=== PATIENT | female | born 1945 | race Caucasian/White ===

== ENCOUNTER 2020-07-08 20:50 | Inpatient (IN) | payer MEDICARE ==
--- NOTE | 2020-07-08 21:25 | ER Document Report ---
ED General - General Chief Complaint: Altered Mental Status Stated Complaint: ALTERED MENTAL STATUS Time Seen by Provider: 07/08/20 21:03 Notes: Patient is a 75-year-old female that comes emergency department for chief complaint of decreased responsiveness and confusion. Patient comes by EMS, patient is on a morphine pump and EMS gave 2 mg of Narcan, after this patient became aroused and responded to them although she continued to be confused. EMS also reports that on arrival family had patient on a nonrebreather mask at only 3 L. Patient did not have any abnormal behavior or symptoms during the day that are reported, does not have a fever, no other pertinent history reported for her current symptoms. On my exam patient is awake, cooperative, but confused. Patient has past medical history of rheumatoid arthritis on Plaquenil, type 2 diabetes, MAC, asthma, DEANN. Patient lives at home with her family who care for her. - Related Data Allergies/Adverse Reactions: No Known Allergies Allergy (Unverified 07/09/20 01:54) Past Medical History - General Information source: Relative - sister - Social History Smoking Status: Never Smoker Frequency of alcohol use: None Drug Abuse: None Lives with: Family Family History: Reviewed & Not Pertinent - Past Medical History Cardiac Medical History: Reports: Hx Hypertension Pulmonary Medical History: Reports: Hx Asthma, Hx Sleep Apnea, Other - MAC Endocrine Medical History: Reports: Hx Diabetes Mellitus Type 2 Musculoskeletal Medical History: Reports Hx Arthritis - Rheumatoid Past Surgical History: Reports: Hx Adenoidectomy, Hx Appendectomy, Hx Genitourinary Surgery - bladder, Hx Herniorrhaphy, Hx Hysterectomy - Immunizations Immunizations up to date: Yes Hx Diphtheria, Pertussis, Tetanus Vaccination: Yes Review of Systems - Review of Systems Constitutional: See HPI EENT: No symptoms reported Cardiovascular: No symptoms reported Respiratory: See HPI Gastrointestinal: No symptoms reported Genitourinary: No symptoms reported Female Genitourinary: No symptoms reported Musculoskeletal: No symptoms reported Skin: No symptoms reported Hematologic/Lymphatic: No symptoms reported Neurological/Psychological: See HPI Physical Exam - Vital signs Vitals: Temp Pulse Resp BP Pulse Ox 97.4 F 67 15 110/50 L 97 07/08/20 20:50 07/08/20 20:50 07/08/20 20:50 07/08/20 20:50 07/08/20 20:50 - Notes Notes: GENERAL: Drowsy, restless, appears uncomfortable HEAD: Normocephalic, atraumatic. EYES: Pupils equal, round, and reactive to light. Extraocular movements intact. ENT: Oral mucosa moist, tongue midline. Oropharynx unremarkable. Airway patent. NECK: Full range of motion. Supple. Trachea midline. No lymphadenopathy. LUNGS: Clear to auscultation bilaterally, no wheezes, rales, or rhonchi. No respiratory distress. Non-tender chest wall. HEART: Regular rate and rhythm. No murmur ABDOMEN: Soft, non-tender. Non-distended. There is an implanted device noted in the right mid to lower abdomen which is fairly large, surrounding area is nontender, no erythema noted. EXTREMITIES: Moves all 4 extremities spontaneously. No edema, normal radial and dorsalis pedis pulses bilaterally. No cyanosis. BACK: no cervical, thoracic, lumbar midline tenderness. No saddle anesthesia, normal distal neurovascular exam. Moves all extremities in full range of motion. NEUROLOGICAL: Patient is awake but drowsy, she is cooperative and follows directions but her speech is slurred and difficult to understand, she cannot give any orientation answers. Cranial nerves II through XII grossly intact. Strength 5/5 in all extremities. SKIN: Warm, dry, normal turgor. No rashes or lesions noted. Course - Re-evaluation Re-evalutation: On my evaluation patient is awake and responding/cooperating with my instructions but she is completely disoriented. Patient is also somnolent and falls asleep when left alone. Patient was agitated, she had suprapubic tenderness, we performed a quick urine catheterization and obtained about 1300 cc. After this was performed patient's agitation resolved and patient was resting comfortably. 07/08/20 Sister came to bedside. She states that last night patient accidentally took double dose of gabapentin, was very drowsy last night, was somewhat drowsy this morning and increasingly confused throughout the day until she became minimally responsive and EMS was called. She reports patient has baseline "low immune system", pneumonia is typically seen on her chest x-ray because of her MAC, and that she is typically anemic. She also states she is a Orthodox and cannot have blood transfusions. 07/09/20 CBC shows significant leukopenia at 1.9, thrombocytopenia. Sister states she believes this is approximate baseline but she is not certain. Chemistry nonspecific, troponin is not elevated, urine drug screen unremarkable. Venous blood gases concerning with marked hypercarbia and respiratory acidosis. I believe this is the cause of patient's altered mental status, patient is doing well on BiPAP. Chest x-ray nonspecific, could be chronic with patient's MAC, patient has not had a fever and had no respiratory symptoms before her altered mental status. Patient will require hospitalization for altered mental status, acute respiratory failure with hypercarbia. I discussed in detail with sister, she states appreciation and agreement. Discussed details with Dr. Vazquez, hospitalist, patient accepted to [facility] full admission. - Vital Signs Vital signs: Temp Pulse Resp BP Pulse Ox 97.4 F 76 17 128/39 H 100 07/09/20 02:11 07/09/20 02:11 07/09/20 02:11 07/09/20 02:11 07/09/20 02:11 - Laboratory Result Diagrams: 07/08/20 21:27 07/08/20 21:27 Laboratory results interpreted by me: 07/08/20 07/08/20 07/08/20 21:27 21:27 21:27 WBC 1.9 L Hgb 11.4 L MCHC 30.2 L RDW 20.5 H Plt Count 104 L Abs Neuts (Manual) 1.0 L VBG pH 7.27 L VBG pCO2 87.4 H* VBG HCO3 39.3 H Carbon Dioxide 37 H Anion Gap 3 L BUN 5 L Creatinine 0.37 L Calcium 7.2 L AST 46 H NT-Pro-B Natriuret Pep Albumin 3.4 L Urine Ascorbic Acid 07/08/20 07/08/20 21:27 21:27 WBC Hgb MCHC RDW Plt Count Abs Neuts (Manual) VBG pH VBG pCO2 VBG HCO3 Carbon Dioxide Anion Gap BUN Creatinine Calcium AST NT-Pro-B Natriuret Pep 531 H Albumin Urine Ascorbic Acid 40 H - EKG Interpretation by Me Additional EKG results interpreted by me: EKG shows sinus rhythm at a rate of 68, QTc 480, normal axis, no T wave inversions or ST segment changes in consecutive leads Discharge - Discharge Clinical Impression: Acute respiratory acidosis, Hypercarbia Altered mental status Qualifiers: Altered mental status type: unspecified Qualified Code(s): R41.82 - Altered mental status, unspecified Condition: Stable Disposition: ADMITTED INPATIENT Admitting Provider: Taylor (Hospitalist) Unit Admitted: IMCU
[2020-07-08 21:49] LABS: VENOUS BLOOD BASE EXCESS 9.4 mmol/L; VENOUS BLOOD HCO3 39.3 mmol/L (20-32); VENOUS BLOOD PH 7.27 (7.30-7.42)
[2020-07-08 21:53] LABS: HEMATOCRIT 37.9 % (36.0-47.0); HEMOGLOBIN 11.4 g/dL (12.0-15.5); MEAN CORPUSCULAR HEMOGLOBIN 29.1 pg (27.0-33.4); MEAN CORPUSCULAR HGB CONC 30.2 g/dL (32.0-36.0); MEAN CORPUSCULAR VOLUME 97 fl (80-97); PLATELET COUNT 104 10^3/uL (150-450); RED BLOOD COUNT 3.93 10^6/uL (3.72-5.28); RED CELL DISTRIBUTION WIDTH 20.5 % (11.5-14.0)
[2020-07-08 21:55] LABS: APPEARANCE,URINE CLEAR; BILIRUBIN,URINE NEGATIVE (NEGATIVE); COLOR,URINE YELLOW; GLUCOSE, URINE NEGATIVE (NEGATIVE); KETONES,URINE NEGATIVE (NEGATIVE); LEUKOCYTE ESTERASE,URINE NEGATIVE (NEGATIVE); NITRITE,URINE NEGATIVE (NEGATIVE); PROTEIN,URINE NEGATIVE (NEGATIVE); URINE SPECIFIC GRAVITY 1.006; UROBILINOGEN,URINE NEGATIVE mg/dL (<2.0)
[2020-07-08 21:56] LABS: VENOUS BLOOD PCO2 87.4 mmHg (35-63)
--- NOTE | 2020-07-08 21:56 | EKG REPORT ---
SEVERITY:- BORDERLINE ECG - SINUS RHYTHM PROBABLE LEFT ATRIAL ABNORMALITY : Confirmed by: Jerrell Cary MD 08-Jul-2020 21:56:04
[2020-07-08 22:07] LABS: ALBUMIN 3.4 g/dL (3.5-5.0); ALKALINE PHOSPHATASE 124 U/L (38-126); ASPARTATE AMINO TRANSFERASE 46 U/L (14-36); BILIRUBIN,DIRECT 0.3 mg/dL (0.0-0.4); BILIRUBIN,TOTAL 0.4 mg/dL (0.2-1.3); BLOOD UREA NITROGEN 5 mg/dL (7-20); CALCIUM 7.2 mg/dL (8.4-10.2); CARBON DIOXIDE 37 mmol/L (22-30); CHLORIDE 99 mmol/L (98-107); GLUCOSE 106 mg/dL (75-110); POTASSIUM 4.4 mmol/L (3.6-5.0); TOTAL PROTEIN 6.3 g/dL (6.3-8.2)
[2020-07-08 22:11] LABS: ALCOHOL < 10 mg/dL (NONE DETECTED); ANION GAP 3 (5-19)
[2020-07-08 22:16] LABS: URINE AMPHETAMINES SCREEN NEGATIVE; URINE BARBITURATES SCREEN NEGATIVE; URINE BENZODIAZEPINES SCREEN NEGATIVE; URINE COCAINE SCREEN NEGATIVE; URINE MARIJUANA (THC) SCREEN NEGATIVE; URINE METHADONE SCREEN NEGATIVE; URINE PHENCYCLIDINE SCREEN NEGATIVE
[2020-07-08 22:29] LABS: ABSOLUTE LYMPHOCYTES# (MANUAL) 0.8 10^3/uL (0.5-4.7); ABSOLUTE MONOCYTES # (MANUAL) 0.1 10^3/uL (0.1-1.4); BASOPHILS % (MANUAL) 2 % (0-2); EOSINOPHILS % (MANUAL) 2 % (0-6); LYMPHOCYTES % (MANUAL) 40 % (13-45); MONOCYTES % (MANUAL) 4 % (3-13); SEGMENTED NEUTROPHILS % (MAN) 50 % (42-78); TOTAL CELLS COUNTED 50
--- NOTE | 2020-07-08 22:34 | RADIOLOGY REPORT (SQ) ---
EXAM DESCRIPTION: X-ray, single view of the chest CLINICAL HISTORY: 75 years Female, AMS COMPARISON: None FINDINGS: Lungs: Lung volumes are low. There is nonspecific patchy opacification in the perihilar and in the right lung. There is asymmetric elevation the right hemidiaphragm. Engorgement of central pulmonary vessels is seen with Airways thickening. No pneumothorax or pleural effusion. Mediastinum: Heart size is mildly enlarged. Bones: There is subtle curvature the thoracic spine convex left. IMPRESSION: Low lung volumes with nonspecific prominence of the interstitial lung markings. The findings may represent pulmonary edema or diffuse interstitial pneumonia.
[2020-07-08 22:36] LABS: ANISOCYTOSIS 2+; PLATELET COMMENT DECREASED; POIKILOCYTOSIS SLIGHT
--- NOTE | 2020-07-08 22:37 | RADIOLOGY REPORT (SQ) ---
CT HEAD WITHOUT IV CONTRAST CLINICAL STATEMENT: AMS TECHNIQUE: Axial CT images from skull base to vertex without IV contrast. This exam was performed according to our departmental dose optimization program, and includes the following measures where applicable: automated exposure control, adjustment of the mAs and/or kVp according to patient size and/or exam, and an iterative reconstruction algorithm. COMPARISON: None. FINDINGS: There is no acute intracranial hemorrhage, mass, mass effect or abnormal extra-axial fluid collection. No evidence of an acute territorial infarct is identified. The ventricles are normal. Calvaria: The skull base and calvaria demonstrate no abnormality. Paranasal sinuses: Visualized portions of the orbits and paranasal sinuses are unremarkable. skull base: Unremarkable IMPRESSION: No acute intracranial abnormality.
[2020-07-08 22:40] LABS: WHITE BLOOD COUNT 1.9 10^3/uL (4.0-10.5)
[2020-07-09] MEDS ORDERED: LEVALBUTEROL HCL NEB 0.63 MG/3 ML AMPUL NEB PRN (00:56)
[2020-07-09] MEDS ORDERED: DEXTROSE 50%-WATER 25 GM/50 ML DISP.SYRIN IV PRN ×2 (00:56)
[2020-07-09] MEDS ORDERED: GLUCAGON,HUMAN RECOMB 1 MG INJ SUBCUT PRN (00:56)
[2020-07-09] MEDS ORDERED: ONDANSETRON HCL INJ/PF 4 MG/2 ML SDV IV PRN (00:56)
[2020-07-09] MEDS ORDERED: DEXTROSE 40% GEL 15 GM TUBE PO PRN ×2 (00:56)
[2020-07-09] MEDS ORDERED: METOPROLOL TARTRATE PF/INJ 5 MG/5 ML SDV IV PRN (01:03)
[2020-07-09] MEDS ORDERED: INSULIN REG, HUMAN 100 UNIT/ML 3 ML VIAL (PYX) SUBCUT PRN (01:03)
[2020-07-09] MEDS ORDERED: HYDRALAZINE HCL INJ/PF 20 MG/1 ML SDV IV PRN (01:03)
[2020-07-09] MEDS ORDERED: ACETAMINOPHEN 650 MG SUPP.RECT PR PRN (01:03)
[2020-07-09] MEDS ORDERED: PROMETHAZINE HCL INJ 25 MG/1 ML VIAL IV PRN (01:55)
--- NOTE | 2020-07-09 03:41 | PDOC H&P ---
History of Present Illness Admission Date/PCP: 07/09/20 00:00 No local PCP Patient complains of: Altered mental status History of Present Illness: PROSPER JACKSON is a 75 year old female who presented to the emergency room with a 2 day history of altered mental status. The patient is confused and lethargic at the time of my evaluation, being unable to contribute to her medical history. Her family notes that she accidentally took an extra dose of her gabapentin on the evening of 07/06/2020 which caused her to become confused and lethargic/poorly responsive. These symptoms have been persistent though of a waxing and waning nature since the morning of 07/07/2020. On the evening of 07/08/2020 her sister put her on a nonrebreather mask with 3 L of oxygen per minute and called EMS because she had become less responsive and very confused. EMS treated the patient with 2 mg of Narcan which modestly improved her arousability but did not improve her confusion. The family denies any other observed associated or accompanying signs and symptoms and reports she had been well throughout the day until she accidentally took the extra dose of gabapentin. Patient is also noted to have a morphine pump for chronic pain. In the emergency room the patient was found to be lethargic and confused with laboratory results indicating hypercapnia and the patient subsequently being put on BiPAP. She was then admitted hospital for further evaluation treatment. Past Medical History Past Medical History: Due to the patient's acute encephalopathy the information presented here is obtained from the best available reliable source. Cardiac Medical History: Reports: Hyperlipidema, Heart Murmur Denies: Atrial Fibrillation, Coronary Artery Disease, DVT, Hypertension, Pulmonary Embolism Pulmonary Medical History: Reports: Asthma, Pneumonia, Sleep Apnea - Obstructive sleep apnea, Other - Mycobacterium avium complex EENT Medical History: Denies: Cataracts, Ears - Hearing aids Neurological Medical History: Reports: Other - Diabetic peripheral neuropathy Denies: Hemorrhagic CVA, Ischemic CVA, Seizures Endocrine Medical History: Reports: Diabetes Mellitus Type 2, Hypothyroidism, Obesity Denies: Diabetes Mellitus Type 1, Hyperthyroidism Renal/ Medical History: Denies: Chronic Kidney Disease, Nephrolithiasis Malignancy Medical History: Reports: None GI Medical History: Reports: Gastroesophageal Reflux Disease, Hiatal Hernia, Other - Hemorrhoids, chronic nausea Denies: Cirrhosis, Crohn's Disease, Hepatitis, Peptic Ulcer Disease, Ulcerative Colitis Musculoskeltal Medical History: Reports: Arthritis - Rheumatoid arthritis, Other - Chronic low back pain syndrome with morphine pump Denies: Gout Skin Medical History: Denies: Eczema, Psoriasis Psychiatric Medical History: Reports: Depression Denies: Alcohol Dependency, Substance Abuse, Tobacco Dependency Traumatic Medical History: Reports: None Hematology: Reports: Anemia - Anemia of chronic disease, Other - "Immunodeficiency syndrome" Denies: Bleeding Tendencies Infectious Medical History: Reports: Methicillin-Resistant Staph Aureus Past Surgical History Past Surgical History: Due to the patient's acute encephalopathy the information presented here is obtained from the best available reliable source. Past Surgical History: Reports: Appendectomy, Cholecystectomy, Herniorrhaphy - Hiatal hernia repair, Hysterectomy, Tonsillectomy, Other - Rectocele, bladder suspension, morphine pump placement, cataracts OU Social History Information Source: Relative Lives with: Family Smoking Status: Former Smoker Electronic Cigarette use?: No Frequency of Alcohol Use: None Hx Recreational Drug Use: No Drugs: None Hx Prescription Drug Abuse: No Past Social History Note: Due to the patient's acute encephalopathy the information presented here is obtained from the best available reliable source. - Advance Directive Resuscitation Status: Full Code Surrogate healthcare decision maker:: Connie Avila Family History Family History: DM Family History: Due to the patient's acute encephalopathy the information presented here is obtained from the best available reliable source. Parental Family History Reviewed: Yes Children Family History Reviewed: No Sibling(s) Family History Reviewed.: Yes Medication/Allergy Allergies/Adverse Reactions: No Known Allergies Allergy (Unverified 07/09/20 01:54) Review of Systems ROS unobtainable: Due to mental status - Acute encephalopathy Physical Exam Vital Signs: Temp Pulse Resp BP Pulse Ox 97.4 F 67 15 110/50 L 92 07/08/20 21:43 07/08/20 21:43 07/09/20 00:00 07/08/20 21:43 07/09/20 00:00 Intake & Output 07/07/20 07/08/20 07/09/20 23:59 23:59 23:59 Weight 165.7 kg General appearance: PRESENT: no acute distress, morbidly obese, other - On BiPAP at the time of my exam Head exam: PRESENT: atraumatic, normocephalic Eye exam: PRESENT: conjunctiva pink. ABSENT: conjunctival injection, scleral icterus Ear exam: PRESENT: normal external ear exam. ABSENT: bleeding, drainage Mouth exam: PRESENT: dry mucosa, neck supple Neck exam: ABSENT: thyromegaly, tracheal deviation Respiratory exam: PRESENT: clear to auscultation kierra, symmetrical, unlabored Cardiovascular exam: PRESENT: RRR. ABSENT: clicks, gallop, rubs Pulses: PRESENT: normal radial pulses, normal dorsalis pedis pul Vascular exam: PRESENT: normal capillary refill. ABSENT: pallor GI/Abdominal exam: PRESENT: normal bowel sounds, soft Rectal exam: PRESENT: deferred Extremities exam: ABSENT: joint swelling, pedal edema Musculoskeletal exam: ABSENT: deformity, dislocation Neurological exam: PRESENT: altered - Lethargic confused, CN II-XII grossly intact - To limited exam Psychiatric exam: PRESENT: other - Lethargic and confused Skin exam: PRESENT: dry, intact, warm. ABSENT: jaundice, rash, urticaria Results Laboratory Results: 07/08/20 21:27 07/08/20 21:27 07/08/20 07/08/20 07/08/20 21:27 21:27 21:27 WBC 1.9 L RBC 3.93 Hgb 11.4 L Hct 37.9 MCV 97 MCH 29.1 MCHC 30.2 L RDW 20.5 H Plt Count 104 L Seg Neutrophils % Not Reportable VBG pH 7.27 L VBG pCO2 87.4 H* VBG HCO3 39.3 H VBG Base Excess 9.4 Sodium 138.5 Potassium 4.4 Chloride 99 Carbon Dioxide 37 H Anion Gap 3 L BUN 5 L Creatinine 0.37 L Est GFR ( Amer) > 60 Glucose 106 Calcium 7.2 L Total Bilirubin 0.4 AST 46 H Alkaline Phosphatase 124 Total Protein 6.3 Albumin 3.4 L Urine Color Urine Appearance Urine pH Ur Specific Mystic Urine Protein Urine Glucose (UA) Urine Ketones Urine Blood Urine Nitrite Ur Leukocyte Esterase Urine WBC (Auto) Urine RBC (Auto) 07/08/20 21:27 WBC RBC Hgb Hct MCV MCH MCHC RDW Plt Count Seg Neutrophils % VBG pH VBG pCO2 VBG HCO3 VBG Base Excess Sodium Potassium Chloride Carbon Dioxide Anion Gap BUN Creatinine Est GFR ( Amer) Glucose Calcium Total Bilirubin AST Alkaline Phosphatase Total Protein Albumin Urine Color YELLOW Urine Appearance CLEAR Urine pH 6.0 Ur Specific Mystic 1.006 Urine Protein NEGATIVE Urine Glucose (UA) NEGATIVE Urine Ketones NEGATIVE Urine Blood NEGATIVE Urine Nitrite NEGATIVE Ur Leukocyte Esterase NEGATIVE Urine WBC (Auto) 0 Urine RBC (Auto) 1 07/08/20 07/08/20 21:27 21:27 Troponin I < 0.012 NT-Pro-B Natriuret Pep 531 H Impressions: Chest X-Ray 07/08/20 21:13 IMPRESSION: Low lung volumes with nonspecific prominence of the interstitial lung markings. The findings may represent pulmonary edema or diffuse interstitial pneumonia. Head CT 07/08/20 21:13 IMPRESSION: No acute intracranial abnormality. Assessment and Plan - Diagnosis (1) Acute encephalopathy Is this a current diagnosis for this admission?: Yes (2) Acute respiratory failure with hypercapnia Is this a current diagnosis for this admission?: Yes (3) Morbid obesity Is this a current diagnosis for this admission?: Yes (4) Obstructive sleep apnea Is this a current diagnosis for this admission?: Yes (5) Asthma with COPD Is this a current diagnosis for this admission?: Yes (6) Rheumatoid arthritis Qualifiers: Rheumatoid arthritis location: unspecified site Rheumatoid factor presence: unspecified presence Qualified Code(s): M06.9 - Rheumatoid arthritis, unspecified Is this a current diagnosis for this admission?: Yes (7) Chronic pain syndrome Is this a current diagnosis for this admission?: Yes (8) Diabetes mellitus type 2 in obese Is this a current diagnosis for this admission?: Yes - Plan Summary Summary: Patient will be admitted to the [facility] where she received routine supportive and symptomatic cares. She will be treated with a noninvasive airway pressure support device to resolve her hypercapnia. Arterial blood gases will be followed to assess her respiratory status. Neuro checks will be performed to evaluate her mental status on a regular basis. Patient's usual medications will be continued, as appropriate, after she has regained her mental faculties back to her baseline level. Until the patient has improved substantially she will remain n.p.o. and will be treated with IV fluids utilizing lactated Ringer solution at 167 mL/h. CBCs, metabolic profiles and additional laboratory and/or radiographic evaluations will be obtained as needed. Accu-Cheks will be performed every 6 hours with sliding scale insulin used for hyperglycemia and a hypoglycemic protocol in place. - Time Time Spent with patient: Less than 15 minutes Medications reviewed and adjusted accordingly: Yes Anticipated Discharge Disposition: Home, Self Care Anticipated Discharge Timeframe: within 48 hours - Inpatient Certification Based on my medical assessment, after consideration of the patient's comorbidities, presenting symptoms, or acuity I expect that the services needed warrant INPATIENT care.: Yes I certify that my determination is in accordance with my understanding of Medicare's requirements for reasonable and necessary INPATIENT services [42 CFR 412.3e].: Yes Medical Necessity: Significant Comorbidiites Make Outpatient Treatment Too Risky, Need Close Monitoring Due to Risk of Patient Decompensation, Need For IV Fluids, Need For Continuous Telemetry Monitoring, Need for Neurological Checks, Risk of Complication if Not Cared For in Hospital
[2020-07-09] MEDS ORDERED: AZITHROMYCIN INJ 500 MG VIAL IV ONE (04:30)
[2020-07-09] MEDS: AZITHROMYCIN 500 MG in DEXTROSE 5%-WATER 250 ML IV SCH ×2 (04:59→21:31)
[2020-07-09 05:37] LABS: ARTERIAL BLOOD H2CO3 1.48 mmol/L (1.05-1.35); ARTERIAL BLOOD HCO3 33.2 mmol/L (20-24); ARTERIAL BLOOD O2 SATURATION 90.8 % (94-98); ARTERIAL BLOOD PCO2 49.2 mmHg (35-45); ARTERIAL BLOOD PH 7.45 (7.35-7.45); ARTERIAL BLOOD PO2 57.8 mmHg (80-100); ARTERIAL BLOOD TOTAL CO2 34.7 mmol/L (21-25)
[2020-07-09 05:38] LABS: ARTERIAL BLOOD FIO2 21%
[2020-07-09] MEDS: HEPARIN SOD (PORCINE) 5,000 UNIT/ML 1 ML VIAL SUBCUT SCH ×2 (06:24→14:00)
[2020-07-09] MEDS ORDERED: AZITHROMYCIN INJ 500 MG VIAL IV SCH (10:00)
[2020-07-09] MEDS: FAMOTIDINE INJ/PF 20 MG/2 ML SDV IV SCH ×2 (10:55→21:31)
[2020-07-09] MEDS: KETOROLAC TROMETHAMINE INJ/PF 30 MG/1 ML SDV IV PRN (14:42)
[2020-07-09] MEDS: RINGERS SOLUTION,LACTATED 1,000 ML IV PRN (16:29)
[2020-07-09] MEDS ORDERED: MORPHINE SULFATE 10 MG/ML INJ IV ONE (18:47)
[2020-07-10] MEDS: KETOROLAC TROMETHAMINE INJ/PF 30 MG/1 ML SDV IV PRN ×2 (00:43→10:48)
[2020-07-10] MEDS: HEPARIN SOD (PORCINE) 5,000 UNIT/ML 1 ML VIAL SUBCUT SCH ×3 (05:09→21:53)
[2020-07-10 06:03] LABS: ANION GAP 6 (5-19); BLOOD UREA NITROGEN 7 mg/dL (7-20); CALCIUM 7.7 mg/dL (8.4-10.2); CARBON DIOXIDE 31 mmol/L (22-30); CHLORIDE 100 mmol/L (98-107); GLUCOSE 103 mg/dL (75-110); POTASSIUM 3.5 mmol/L (3.6-5.0)
[2020-07-10 06:06] LABS: HEMOGLOBIN 11.5 g/dL (12.0-15.5)
[2020-07-10 06:10] LABS: HEMATOCRIT 35.7 % (36.0-47.0); MEAN CORPUSCULAR HEMOGLOBIN 29.4 pg (27.0-33.4); MEAN CORPUSCULAR HGB CONC 32.2 g/dL (32.0-36.0); PLATELET COUNT 136 10^3/uL (150-450); RED CELL DISTRIBUTION WIDTH 20.3 % (11.5-14.0); WHITE BLOOD COUNT 3.7 10^3/uL (4.0-10.5)
[2020-07-10 06:16] LABS: MEAN CORPUSCULAR VOLUME 92 fl (80-97)
[2020-07-10] MEDS: FAMOTIDINE INJ/PF 20 MG/2 ML SDV IV SCH (10:48)
[2020-07-10 11:09] LABS: ARTERIAL BLOOD BASE EXCESS 3.4 mmol/L; ARTERIAL BLOOD H2CO3 1.28 mmol/L (1.05-1.35); ARTERIAL BLOOD O2 SATURATION 98.4 % (94-98); ARTERIAL BLOOD PCO2 42.4 mmHg (35-45); ARTERIAL BLOOD PH 7.44 (7.35-7.45); ARTERIAL BLOOD PO2 119.1 mmHg (80-100); ARTERIAL BLOOD TOTAL CO2 29.3 mmol/L (21-25)
[2020-07-10 11:10] LABS: ARTERIAL BLOOD FIO2 3L
[2020-07-10] MEDS: RINGERS SOLUTION,LACTATED 1,000 ML IV PRN ×2 (12:44→19:02)
--- NOTE | 2020-07-10 13:44 | PDOC PROGRESS REPORT ---
Subjective Progress Note for:: 07/10/20 Subjective:: Is much improved today. In fact is awake and alert although sister says she is really not back to baseline Reason For Visit: ACUTE ENCEPHALOPATHY,ACCIDENTAL OVERDOSE OF GABAPE Physical Exam Vital Signs: Temp Pulse Resp BP Pulse Ox 97.5 F 80 15 137/67 H 100 07/10/20 12:10 07/10/20 12:10 07/10/20 12:10 07/10/20 12:10 07/10/20 12:10 Intake & Output 07/09/20 07/10/20 07/11/20 06:59 06:59 06:59 Intake Total 500 1250 Balance 500 1250 Weight 97.6 kg 73.2 kg General appearance: PRESENT: no acute distress Head exam: PRESENT: atraumatic Eye exam: PRESENT: conjunctiva pink, EOMI, PERRLA. ABSENT: scleral icterus Ear exam: PRESENT: normal external ear exam Mouth exam: PRESENT: moist, tongue midline Neck exam: ABSENT: carotid bruit, JVD, lymphadenopathy, thyromegaly Respiratory exam: PRESENT: clear to auscultation kierra, unlabored. ABSENT: rales, rhonchi, wheezes Cardiovascular exam: PRESENT: RRR, +S1, +S2. ABSENT: diastolic murmur, rubs, systolic murmur Pulses: PRESENT: normal dorsalis pedis pul GI/Abdominal exam: PRESENT: normal bowel sounds, soft. ABSENT: distended, guard ing, mass, organolmegaly, rebound, tenderness Rectal exam: PRESENT: deferred Extremities exam: PRESENT: full ROM. ABSENT: calf tenderness, clubbing, pedal edema Neurological exam: PRESENT: alert, awake, other - still seems a little confused. ABSENT: motor sensory deficit Psychiatric exam: PRESENT: appropriate affect, normal mood. ABSENT: homicidal ideation, suicidal ideation Skin exam: PRESENT: dry, intact, warm. ABSENT: cyanosis, rash Results Laboratory Results: 07/10/20 05:56 07/10/20 04:33 07/10/20 07/10/20 07/10/20 04:33 04:33 04:33 WBC Cancelled RBC Cancelled Hgb Cancelled Hct Cancelled MCV Cancelled MCH Cancelled MCHC Cancelled RDW Cancelled Plt Count Cancelled Carbonic Acid HCO3/H2CO3 Ratio ABG pH ABG pCO2 ABG pO2 ABG HCO3 ABG O2 Saturation ABG Base Excess FiO2 Sodium 137.1 Potassium 3.5 L Chloride 100 Carbon Dioxide 31 H Anion Gap 6 BUN 7 Creatinine 0.43 L Est GFR ( Amer) > 60 Glucose 103 Calcium 7.7 L Magnesium 2.4 H TSH 12.20 H 07/10/20 07/10/20 05:56 10:47 WBC 3.7 L RBC 3.90 Hgb 11.5 L Hct 35.7 L MCV 92 D MCH 29.4 MCHC 32.2 RDW 20.3 H Plt Count 136 L Carbonic Acid 1.28 HCO3/H2CO3 Ratio 21:1 ABG pH 7.44 ABG pCO2 42.4 ABG pO2 119.1 H ABG HCO3 28.0 H ABG O2 Saturation 98.4 H ABG Base Excess 3.4 FiO2 3L Sodium Potassium Chloride Carbon Dioxide Anion Gap BUN Creatinine Est GFR ( Amer) Glucose Calcium Magnesium TSH 07/08/20 07/08/20 21:27 21:27 Troponin I < 0.012 NT-Pro-B Natriuret Pep 531 H Impressions: Chest X-Ray 07/08/20 21:13 IMPRESSION: Low lung volumes with nonspecific prominence of the interstitial lung markings. The findings may represent pulmonary edema or diffuse interstitial pneumonia. Head CT 07/08/20 21:13 IMPRESSION: No acute intracranial abnormality. Assessment and Plan - Diagnosis (1) Acute encephalopathy Is this a current diagnosis for this admission?: Yes Plan: Likely due to hypercapnia. This is resolved (2) Acute respiratory failure with hypercapnia Is this a current diagnosis for this admission?: Yes Plan: Likely iatrogenic, medication induced. This is resolved ABG noted with marked improvement in her acidosis (3) Chronic pain syndrome Is this a current diagnosis for this admission?: Yes Plan: Patient does have a history of rheumatoid arthritis. Will restart her chronic pain medicine with adjusted dose as appropriate (4) Pancytopenia Is this a current diagnosis for this admission?: Yes Plan: Precise etiology unclear, possibly drug-induced as patient is on multiple agents including hydroxychloroquine And numbers are recovering. Platelet count has come up. - Plan Summary Summary: We will place her back on her medications with adjustments as needed. She will be monitored overnight and will obtain physical therapy. She will be started on a diet. If she remains stable will plan on DC in a.m. - Time Time Spent with patient: 15-24 minutes Medications reviewed and adjusted accordingly: Yes Anticipated Discharge Disposition: Home with Home Health Anticipated Discharge Timeframe: within 24 hours
[2020-07-10] MEDS ORDERED: (PENDING PHARMACY ID) (Levothyroxine Sodium [Synthroid] 125 MCG) PO SCH (13:45)
[2020-07-10] MEDS ORDERED: (PENDING PHARMACY ID) (Gabapentin [Neurontin] 300 MG) PO SCH (14:00)
[2020-07-10] MEDS: LEVOTHYROXINE SODIUM 0.05 MG TABLET PO SCH (16:42)
[2020-07-10] MEDS: GABAPENTIN 300 MG CAPSULE PO SCH (16:45)
[2020-07-10] MEDS ORDERED: ASCORBIC ACID PO SCH (18:00)
[2020-07-10] MEDS ORDERED: GABAPENTIN 300 MG CAPSULE PO SCH (18:00)
[2020-07-10] MEDS ORDERED: IRON CARBONYL PO SCH (18:00)
[2020-07-10] MEDS: MONTELUKAST SODIUM 10 MG TABLET PO SCH (19:04)
[2020-07-10] MEDS: METOPROLOL SUCCINATE 25 MG TAB.SR.24H PO SCH (19:04)
[2020-07-10] MEDS: DIVALPROEX SODIUM 125 MG CAP.SPRINK PO SCH (19:05)
[2020-07-10] MEDS: HYDROXYCHLOROQUINE SULFATE 200 MG TABLET PO SCH (19:06)
[2020-07-10] MEDS: IRON POLYSACCHARIDES COMPLEX 150 MG CAPSULE PO SCH (19:06)
[2020-07-10] MEDS: SULFASALAZINE 500 MG TABLET.DR PO SCH (19:06)
[2020-07-10] MEDS: AZITHROMYCIN 500 MG in DEXTROSE 5%-WATER 250 ML IV SCH (21:52)
[2020-07-10] MEDS: FAMOTIDINE 20 MG TABLET PO SCH (21:53)
[2020-07-10] MEDS: ATORVASTATIN CALCIUM 10 MG TABLET PO SCH (21:53)
[2020-07-10] MEDS ORDERED: (PENDING PHARMACY ID) (Rosuvastatin Calcium [Rosuvastatin Calcium] 5 MG) PO SCH (22:00)
[2020-07-10] MEDS: LUBIPROSTONE 8 MCG CAPSULE PO SCH (22:00)
[2020-07-11] MEDS: GABAPENTIN 300 MG CAPSULE PO SCH ×6 (00:06→23:55)
[2020-07-11] MEDS: RINGERS SOLUTION,LACTATED 1,000 ML IV PRN ×2 (03:05→18:21)
[2020-07-11] MEDS: HEPARIN SOD (PORCINE) 5,000 UNIT/ML 1 ML VIAL SUBCUT SCH ×3 (05:27→22:59)
[2020-07-11] MEDS: LEVOTHYROXINE SODIUM 0.05 MG TABLET PO SCH (06:37)
[2020-07-11 07:21] LABS: HEMATOCRIT 36.2 % (36.0-47.0); HEMOGLOBIN 11.5 g/dL (12.0-15.5); MEAN CORPUSCULAR HEMOGLOBIN 29.3 pg (27.0-33.4); MEAN CORPUSCULAR HGB CONC 31.8 g/dL (32.0-36.0); MEAN CORPUSCULAR VOLUME 92 fl (80-97); PLATELET COUNT 143 10^3/uL (150-450); RED BLOOD COUNT 3.93 10^6/uL (3.72-5.28); RED CELL DISTRIBUTION WIDTH 20.6 % (11.5-14.0); WHITE BLOOD COUNT 5.9 10^3/uL (4.0-10.5)
[2020-07-11 07:51] LABS: FREE T3 3.3 pg/mL (2.77-5.27); FREE T4 (FREE THYROXINE) 0.98 ng/dL (0.78-2.19)
[2020-07-11] MEDS: SULFASALAZINE 500 MG TABLET.DR PO SCH ×3 (13:15→18:25)
[2020-07-11] MEDS: LUBIPROSTONE 8 MCG CAPSULE PO SCH ×3 (13:15→18:24)
[2020-07-11] MEDS: DIVALPROEX SODIUM 125 MG CAP.SPRINK PO SCH ×3 (13:16→18:25)
[2020-07-11] MEDS: HYDROCHLOROTHIAZIDE 12.5 MG TABLET PO SCH (13:16)
[2020-07-11] MEDS: FOLIC ACID 1 MG TABLET PO SCH (13:16)
[2020-07-11] MEDS: POTASSIUM CHLORIDE 10 MEQ TABLET.ER PO SCH (13:16)
[2020-07-11] MEDS: MAGNESIUM OXIDE 400 MG TABLET PO SCH (13:16)
[2020-07-11] MEDS: FAMOTIDINE 20 MG TABLET PO SCH ×2 (13:17→22:47)
[2020-07-11] MEDS: HYDROXYCHLOROQUINE SULFATE 200 MG TABLET PO SCH ×2 (13:17→18:08)
[2020-07-11] MEDS: IRON POLYSACCHARIDES COMPLEX 150 MG CAPSULE PO SCH ×3 (13:17→18:24)
--- NOTE | 2020-07-11 15:27 | PDOC PROGRESS REPORT ---
Subjective Progress Note for:: 07/11/20 Subjective:: patient is somewhat lethargic today. Apparently she had been somewhat combative during the night and had received Phenergan about 12.5. This may be what is making her drowsy. Her labs also look a lot better. Because of the drowsiness I think we will keep for another 24 hours and monitor her to make sure that her lethargy resolves. We will try and avoid [employer] depressants and sedatives Reason For Visit: ACUTE ENCEPHALOPATHY,ACCIDENTAL OVERDOSE OF GABAPE Physical Exam Vital Signs: Temp Pulse Resp BP Pulse Ox 98.3 F 73 18 143/62 H 98 07/11/20 10:00 07/11/20 11:28 07/11/20 11:28 07/11/20 11:28 07/11/20 11:28 Intake & Output 07/10/20 07/11/20 07/12/20 06:59 06:59 06:59 Intake Total 1250 3130 Balance 1250 3130 Weight 73.2 kg 74 kg General appearance: PRESENT: no acute distress, other - Lethargic but arousable Mouth exam: PRESENT: dry mucosa Respiratory exam: PRESENT: clear to auscultation kierra, unlabored Cardiovascular exam: PRESENT: RRR, +S1, +S2 GI/Abdominal exam: PRESENT: normal bowel sounds Neurological exam: PRESENT: altered, other - Lethargic to fully evaluate Results Laboratory Results: 07/11/20 06:49 07/10/20 04:33 07/11/20 07/11/20 06:49 06:49 WBC 5.9 RBC 3.93 Hgb 11.5 L Hct 36.2 MCV 92 MCH 29.3 MCHC 31.8 L RDW 20.6 H Plt Count 143 L Free T4 0.98 Free T3 pg/mL 3.30 07/08/20 07/08/20 21:27 21:27 Troponin I < 0.012 NT-Pro-B Natriuret Pep 531 H Impressions: Chest X-Ray 07/08/20 21:13 IMPRESSION: Low lung volumes with nonspecific prominence of the interstitial lung markings. The findings may represent pulmonary edema or diffuse interstitial pneumonia. Head CT 07/08/20 21:13 IMPRESSION: No acute intracranial abnormality. Assessment and Plan - Diagnosis (1) Acute encephalopathy Is this a current diagnosis for this admission?: Yes Plan: Precise etiology still not clear but this was much improved yesterday. Lethargy today could be due to the sedative that she had received (2) Acute respiratory failure with hypercapnia Is this a current diagnosis for this admission?: Yes Plan: Likely iatrogenic, medication induced. This is resolved ABG noted with marked improvement in her acidosis If warranted we will repeat ABG (3) Chronic pain syndrome Is this a current diagnosis for this admission?: Yes Plan: Patient does have a history of rheumatoid arthritis. Will continue to adjust dose as appropriate (4) Pancytopenia Is this a current diagnosis for this admission?: Yes Plan: Precise etiology unclear, possibly drug-induced as patient is on multiple agents including hydroxychloroquine Her numbers are recovering. Platelet count has come up to 143 from 103. (5) Hypothyroid Is this a current diagnosis for this admission?: Yes Plan: TSH noted to be elevated at 12 free T4 and T3 low normal. Patient has been on Synthroid 0.125 mcg. I will add 0.05 mcg 2 days to increase to 0.175. This will need to be followed as outpatient - Time Time Spent with patient: 15-24 minutes Medications reviewed and adjusted accordingly: Yes Anticipated Discharge Disposition: Home, Self Care Anticipated Discharge Timeframe: within 24 hours
[2020-07-11] MEDS: MONTELUKAST SODIUM 10 MG TABLET PO SCH (18:08)
[2020-07-11] MEDS: METOPROLOL SUCCINATE 25 MG TAB.SR.24H PO SCH (18:09)
[2020-07-11] MEDS: AZITHROMYCIN 500 MG in DEXTROSE 5%-WATER 250 ML IV SCH (22:46)
[2020-07-11] MEDS: ATORVASTATIN CALCIUM 10 MG TABLET PO SCH (22:47)
[2020-07-11] MEDS: KETOROLAC TROMETHAMINE INJ/PF 30 MG/1 ML SDV IV PRN (23:55)
[2020-07-12] MEDS ORDERED: LORAZEPAM INJ 2 MG/1 ML VIAL IV PRN (01:26)
[2020-07-12] MEDS ORDERED: HALOPERIDOL LACTATE INJ 5 MG/1 ML VIAL IV PRN (01:26)
[2020-07-12] MEDS: HEPARIN SOD (PORCINE) 5,000 UNIT/ML 1 ML VIAL SUBCUT SCH (05:56)
[2020-07-12] MEDS ORDERED: LEVOTHYROXINE SODIUM 0.1 MG TABLET PO SCH (06:00)
[2020-07-12] MEDS ORDERED: LEVOTHYROXINE SODIUM 0.075 MG TABLET PO SCH (06:00)
[2020-07-12] MEDS: GABAPENTIN 300 MG CAPSULE PO SCH ×2 (06:26→11:22)
--- NOTE | 2020-07-12 10:45 | PDOC DISCHARGE SUMMARY ---
Impression - Admit/DC Date/PCP Admission Date/Primary Care Provider: 07/09/20 00:00 Discharge Date: 07/12/20 - Discharge Diagnosis (1) Acute encephalopathy Is this a current diagnosis for this admission?: Yes (2) Acute respiratory failure with hypercapnia Is this a current diagnosis for this admission?: Yes (3) Chronic pain syndrome Is this a current diagnosis for this admission?: Yes (4) Pancytopenia Is this a current diagnosis for this admission?: Yes (5) Hypothyroid Is this a current diagnosis for this admission?: Yes - Additional Information Resuscitation Status: Full Code Discharge Diet: Regular Discharge Activity: Activity As Tolerated Prescriptions: Levothyroxine Sodium [Synthroid 50 Mcg Tablet] 50 mcg PO DAILY #30 tablet Home Medications: Divalproex Sodium [Depakote Sprinkle] 125 mg PO BID 07/09/20 Folic Acid [Folvite 1 mg Tablet] 1 mg PO DAILY 07/09/20 Hydrochlorothiazide [Hydrodiuril 12.5 mg Tablet] 12.5 mg PO DAILY 07/09/20 Hydroxychloroquine Sulfate [Plaquenil 200 mg Tablet] 200 mg PO BID 07/09/20 Iron,Carbonyl/Ascorbic Acid [Iron 100-Vitamin C Tablet] 1 tab PO BID 07/09/20 Levothyroxine Sodium [Synthroid] 125 mcg PO Q6AM 07/09/20 Lubiprostone [Amitiza 8 Mcg Capsule] 8 mcg PO BID 07/09/20 Magnesium Oxide [Mag-Ox 400 mg Tablet] 400 mg PO DAILY 07/09/20 Metoprolol Succinate [Toprol Xl 25 mg Tab.sr] 25 mg PO QPM 07/09/20 Montelukast Sodium [Singulair 10 mg Tablet] 10 mg PO QPM 07/09/20 Potassium Chloride [Klor-Con 10 Meq Tablet ER] 20 meq PO DAILY 07/09/20 Rosuvastatin Calcium 5 mg PO QHS 07/09/20 Sulfasalazine [Azulfidine] 1,000 mg PO BID 07/09/20 Gabapentin [Neurontin] 600 mg PO Q8 #0 07/12/20 Levothyroxine Sodium [Synthroid 50 Mcg Tablet] 50 mcg PO DAILY #30 tablet 07/12/20 History of Present Illiness History of Present Illness: PROSPER JACKSON is a 75 year old female Patient was admitted with altered mental status. She was initially confused on initial presentation to the emergency room. She does have a morphine pump for chronic pain. Hospital Course Hospital Course: Patient was admitted with acute hypercapnic respiratory failure. Etiology not quite clear although thought to be due to possible medication overdosage, unintentional. Patient does have a morphine pump in place and in addition she also takes gabapentin so it is very likely that her encephalopathy and hypercapnia were secondary to medications. Patient was initially placed on BiPAP. Her acidosis gradually improved. She has also improved in terms of her encephalopathy however family says she is still of her baseline. She was started on empiric Zithromax although there was no clear-cut evidence of any acute infection. 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 Details of this are unknown at this time. She is advised to resume her medications as previously prescribed and she will follow- up with her physician when she gets back to [place]. Patient also had a brief. Of pancytopenia with also unclear etiology. This ho wever has resolved at this time. She was restarted back on her home meds although with adjusted dosage. Her TSH was found to be elevated at 12.2 and so her Synthroid has been increased however this will need further evaluation as outpatient and adjustment depending on her values. Patient has ambulated with physical therapy and she has been hemodynamically stable and at this time it is felt that she will be better served being home as is no acute medical illness being treated. She has been discharged home with family. Her temperature this morning prior to discharge was 97.5. Physical Exam Vital Signs: Temp Pulse Resp BP Pulse Ox 94.5 F L 80 18 113/73 100 07/11/20 19:45 07/12/20 02:00 07/11/20 19:45 07/11/20 19:45 07/11/20 19:45 Intake & Output 07/11/20 07/12/20 07/13/20 06:59 06:59 06:59 Intake Total 3130 2740 Balance 3130 2740 Weight 74 kg 74 kg General appearance: PRESENT: no acute distress, well-developed, well-nourished Head exam: PRESENT: atraumatic, normocephalic Eye exam: PRESENT: conjunctiva pink, EOMI, PERRLA. ABSENT: scleral icterus Ear exam: PRESENT: normal external ear exam Mouth exam: PRESENT: moist, tongue midline Neck exam: ABSENT: carotid bruit, JVD, lymphadenopathy, thyromegaly Respiratory exam: PRESENT: clear to auscultation kierra. ABSENT: rales, rhonchi, wheezes Cardiovascular exam: PRESENT: RRR. ABSENT: diastolic murmur, rubs, systolic murmur Pulses: PRESENT: normal dorsalis pedis pul Vascular exam: PRESENT: normal capillary refill GI/Abdominal exam: PRESENT: normal bowel sounds, soft. ABSENT: distended, guarding, mass, organolmegaly, rebound, tenderness Rectal exam: PRESENT: deferred Extremities exam: PRESENT: full ROM. ABSENT: calf tenderness, clubbing, pedal edema Neurological exam: PRESENT: alert, awake, oriented to person, oriented to place, oriented to time, oriented to situation, CN II-XII grossly intact. ABSENT: motor sensory deficit Psychiatric exam: PRESENT: appropriate affect, normal mood. ABSENT: homicidal ideation, suicidal ideation Skin exam: PRESENT: dry, intact, warm. ABSENT: cyanosis, rash Results Laboratory Results: WBC 5.9 10^3/uL (4.0-10.5) 07/11/20 06:49 RBC 3.93 10^6/uL (3.72-5.28) 07/11/20 06:49 Hgb 11.5 g/dL (12.0-15.5) L 07/11/20 06:49 Hct 36.2 % (36.0-47.0) 07/11/20 06:49 MCV 92 fl (80-97) 07/11/20 06:49 MCH 29.3 pg (27.0-33.4) 07/11/20 06:49 MCHC 31.8 g/dL (32.0-36.0) L 07/11/20 06:49 RDW 20.6 % (11.5-14.0) H 07/11/20 06:49 Plt Count 143 10^3/uL (150-450) L 07/11/20 06:49 Lymph % (Auto) Not Reportable 07/08/20 21:27 [place] % (Auto) Not Reportable 07/08/20 21:27 Eos % (Auto) Not Reportable 07/08/20 21:27 Baso % (Auto) Not Reportable 07/08/20 21:27 Absolute Neuts (auto) Not Reportable 07/08/20 21:27 Absolute Lymphs (auto) Not Reportable 07/08/20 21:27 Absolute Monos (auto) Not Reportable 07/08/20 21:27 Absolute Eos (auto) Not Reportable 07/08/20 21:27 Absolute Basos (auto) Not Reportable 07/08/20 21:27 Total Counted 50 07/08/20 21: Seg Neutrophils % Not Reportable 07/08/20 21: Seg Neuts % (Manual) 50 % (42-78) 07/08/20 21: Lymphocytes % (Manual) 40 % (13-45) 07/08/20 21: Atypical Lymphs % 2 % (0) 07/08/20 21: Monocytes % (Manual) 4 % (3-13) 07/08/20 21: Eosinophils % (Manual) 2 % (0-6) 07/08/20 21: Basophils % (Manual) 2 % (0-2) 07/08/20 21: Abs Neuts (Manual) 1.0 10^3/uL (1.7-8.2) L 07/08/20 21: Abs Lymphs (Manual) 0.8 10^3/uL (0.5-4.7) 07/08/20 21: Abs Monocytes (Manual) 0.1 10^3/uL (0.1-1.4) 07/08/20 21: Absolute Eos (Manual) 0.0 10^3/uL (0.0-0.6) 07/08/20 21: Abs Basophils (Manual) 0.0 10^3/uL (0.0-0.2) 07/08/20 21: Platelet Estimate Cancelled 07/10/20 04:33 Platelet Comment DECREASED 07/08/20 21:27 Poikilocytosis SLIGHT 07/08/20 21: Anisocytosis 2+ 07/08/20 21: Carbonic Acid 1.28 mmol/L (1.05-1.35) 07/10/20 10:47 HCO3/H2CO3 Ratio 21:1 07/10/20 10:47 ABG pH 7.44 (7.35-7.45) 07/10/20 10:47 ABG pCO2 42.4 mmHg (35-45) 07/10/20 10:47 ABG pO2 119.1 mmHg (80-100) H 07/10/20 10:47 ABG HCO3 28.0 mmol/L (20-24) H 07/10/20 10:47 ABG Total CO2 29.3 mmol/L (21-25) H 07/10/20 10:47 ABG O2 Saturation 98.4 % (94-98) H 07/10/20 10:47 ABG Base Excess 3.4 mmol/L 07/10/20 10:47 VBG pH 7.27 (7.30-7.42) L 07/08/20 21:27 VBG pCO2 87.4 mmHg (35-63) H* 07/08/20 21:27 VBG HCO3 39.3 mmol/L (20-32) H 07/08/20 21:27 VBG Base Excess 9.4 mmol/L 07/08/20 21:27 FiO2 3L 07/10/20 10:47 Sodium 137.1 mmol/L (137-145) 07/10/20 04:33 Potassium 3.5 mmol/L (3.6-5.0) L 07/10/20 04:33 Chloride 100 mmol/L (98-107) 07/10/20 04:33 Carbon Dioxide 31 mmol/L (22-30) H 07/10/20 04:33 Anion Gap 6 (5-19) 07/10/20 04:33 BUN 7 mg/dL (7-20) 07/10/20 04:33 Creatinine 0.43 mg/dL (0.52-1.25) L 07/10/20 04:33 Est GFR ( Amer) > 60 (>60) 07/10/20 04:33 Est GFR (MDRD) Non-Af > 60 (>60) 07/10/20 04:33 Glucose 103 mg/dL (75-110) 07/10/20 04:33 POC Glucose 75 mg/dL (70-110) 07/12/20 06:24 Hemoglobin A1c % 4.1 % (4.7-6.0) L 07/10/20 04:33 Calcium 7.7 mg/dL (8.4-10.2) L 07/10/20 04:33 Magnesium 2.4 mg/dL (1.6-2.3) H 07/10/20 04:33 Total Bilirubin 0.4 mg/dL (0.2-1.3) 07/08/20 21:27 Direct Bilirubin 0.3 mg/dL (0.0-0.4) 07/08/20 21:27 Neonat Total Bilirubin Not Reportable 07/08/20 21:27 Neonat Direct Bilirubin Not Reportable 07/08/20 21:27 Neonat Indirect Bili Not Reportable 07/08/20 21:27 AST 46 U/L (14-36) H 07/08/20 21:27 ALT 27 U/L (<35) 07/08/20 21:27 Alkaline Phosphatase 124 U/L (38-126) 07/08/20 21:27 Troponin I < 0.012 ng/mL 07/08/20 21:27 NT-Pro-B Natriuret Pep 531 pg/mL (<450) H 07/08/20 21:27 Total Protein 6.3 g/dL (6.3-8.2) 07/08/20 21:27 Albumin 3.4 g/dL (3.5-5.0) L 07/08/20 21:27 TSH 12.20 uIU/mL (0.47-4.68) H 07/10/20 04:33 Free T4 0.98 ng/dL (0.78-2.19) 07/11/20 06:49 Free T3 pg/mL 3.30 pg/mL (2.77-5.27) 07/11/20 06:49 Urine Color YELLOW 07/08/20 21:27 Urine Appearance CLEAR 07/08/20 21:27 Urine pH 6.0 (5.0-9.0) 07/08/20 21:27 Ur Specific [place] 1.006 07/08/20 21:27 Urine Protein NEGATIVE mg/dL (NEGATIVE) 07/08/20 21:27 Urine Glucose (UA) NEGATIVE mg/dL (NEGATIVE) 07/08/20 21:27 Urine Ketones NEGATIVE mg/dL (NEGATIVE) 07/08/20 21:27 Urine Blood NEGATIVE (NEGATIVE) 07/08/20 21:27 Urine Nitrite NEGATIVE (NEGATIVE) 07/08/20 21:27 Urine Bilirubin NEGATIVE (NEGATIVE) 07/08/20 21:27 Urine Urobilinogen NEGATIVE mg/dL (<2.0) 07/08/20 21:27 Ur Leukocyte Esterase NEGATIVE (NEGATIVE) 07/08/20 21:27 Urine WBC (Auto) 0 /HPF 07/08/20 21:27 Urine RBC (Auto) 1 /HPF 07/08/20 21:27 Urine Mucus (Auto) RARE /LPF 07/08/20 21:27 Urine Ascorbic Acid 40 (NEGATIVE) H 07/08/20 21:27 Urine Opiates Screen UNCONFIRMED POSITIVE 07/08/20 21:27 Urine Methadone Screen NEGATIVE 07/08/20 21:27 Ur Barbiturates Screen NEGATIVE 07/08/20 21:27 Ur Phencyclidine Scrn NEGATIVE 07/08/20 21:27 Ur Amphetamines Screen NEGATIVE 07/08/20 21:27 U Benzodiazepines Scrn NEGATIVE 07/08/20 21:27 Urine Cocaine Screen NEGATIVE 07/08/20 21:27 U Marijuana (THC) Screen NEGATIVE 07/08/20 21:27 Serum Alcohol < 10 mg/dL (NONE DETECTED) 07/08/20 21:27 Slides for Path Review Cancelled 07/10/20 04:33 07/08/20 07/08/20 21:27 21:27 Troponin I < 0.012 NT-Pro-B Natriuret Pep 531 H Impressions: Chest X-Ray 07/08/20 21:13 IMPRESSION: Low lung volumes with nonspecific prominence of the interstitial lung markings. The findings may represent pulmonary edema or diffuse interstitial pneumonia. Head CT 07/08/20 21:13 IMPRESSION: No acute intracranial abnormality. Plan Health Concerns: Concerns about polypharmacy and excessive analgesia. This should be addressed by her primary care physician back in [place] home [place] Stroke Is this a Stroke Patient?: No Acute Heart Failure Is this a Heart Failure Patient?: No
[2020-07-12] MEDS: POTASSIUM CHLORIDE 10 MEQ TABLET.ER PO SCH (11:19)
[2020-07-12] MEDS: DIVALPROEX SODIUM 125 MG CAP.SPRINK PO SCH (11:19)
[2020-07-12] MEDS: IRON POLYSACCHARIDES COMPLEX 150 MG CAPSULE PO SCH (11:21)
[2020-07-12] MEDS: LUBIPROSTONE 8 MCG CAPSULE PO SCH (11:21)
[2020-07-12] MEDS: HYDROXYCHLOROQUINE SULFATE 200 MG TABLET PO SCH (11:22)
[2020-07-12] MEDS: MAGNESIUM OXIDE 400 MG TABLET PO SCH (11:22)
[2020-07-12] MEDS: FOLIC ACID 1 MG TABLET PO SCH (11:22)
[2020-07-12] MEDS: HYDROCHLOROTHIAZIDE 12.5 MG TABLET PO SCH (11:24)
[2020-07-12] MEDS: FAMOTIDINE 20 MG TABLET PO SCH (11:25)
[2020-07-12] MEDS: SULFASALAZINE 500 MG TABLET.DR PO SCH (11:31)
[2020-07-12 13:11] VITALS: BP 156/67
== END 2020-07-12 14:00 | disposition home or self-care (01) | DRG 189 ==
LOC: ER 20:50 → EH 07-09 → 5 07-09 01:48
PROVIDERS: ADMIT Emergency Medicine; ATTEND Internal Medicine
PROC: 5A09457 Assistance with Respiratory Ventilation, 24-96 Consecutive Hours, Continuous Positive Airway Pressure (ICD-10-PCS; principal; 2020-07-08)
DX: J96.02 Acute respiratory failure with hypercapnia (principal); D61.818 Other pancytopenia; G89.4 Chronic pain syndrome; E78.5 Hyperlipidemia, unspecified; G47.33 Obstructive sleep apnea (adult) (pediatric); E03.9 Hypothyroidism, unspecified; E11.42 Type 2 diabetes mellitus with diabetic polyneuropathy; F32.9 Major depressive disorder, single episode, unspecified; K21.9 Gastro-esophageal reflux disease without esophagitis; M06.9 Rheumatoid arthritis, unspecified; D63.8 Anemia in other chronic diseases classified elsewhere; E66.01 Morbid (severe) obesity due to excess calories; J44.9 Chronic obstructive pulmonary disease, unspecified; Z79.890 Hormone replacement therapy; Z79.899 Other long term (current) drug therapy; Z86.14 Personal history of Methicillin resistant Staphylococcus aureus infection; Z87.891 Personal history of nicotine dependence
CPT/HCPCS: 36415; 36600; 70450; 71045; 80048; 80053; 80307; 81001; 82803; 82962; 83036; 83735; 83880; 84439; 84443; 84481; 84484; 85025; 85027; 87040; 93005; 93010; 94660; 99285; J0456; J1885; J2060; J2270; J2550; J3490; J7060; J7120; S0028